=== PATIENT | female | born 1980 | race African-American/Black ===

== ENCOUNTER 2020-03-31 09:24 | Emergency (ER) | payer MEDICAID ==
[~2020-03-31] VITALS: Ht 152.4 cm; Wt 86.0 kg
[2020-03-31 09:26] VITALS: BP 147/108
== END 2020-03-31 10:00 | disposition home or self-care (01) ==
LOC: ER 09:34
DX: M79.601 Pain in right arm (principal)
CPT/HCPCS: 99281